=== PATIENT | male | born 1985 | race Caucasian/White ===

== ENCOUNTER 2019-04-21 16:43 | Inpatient (IN) | payer OTHER ==
[~2019-04-21] VITALS: Ht 182.9 cm; Wt 96.3 kg
[2019-04-21 17:35] VITALS: BP 114/76
--- NOTE | 2019-04-21 17:35 | NUR ---
PATIENT MEETS [facility]. CINA=[id number]. PATIENT IS GOING TO FOLLOW UP WITH ON DEM[facility] IN [facility] FOR OUTPATIENT TREATMENT. JACK ELMUS B.A. [employer]ION[employer] E[employer]IST
--- NOTE | 2019-04-21 17:35 | NUR ---
34 year old MALE admitted to room # 531 for stabilization. 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 Compliant with admission procedure. Patient denies any anxiety, but is unable to sit still, taps toes to floor continuously, looks about room, unable to focus eyes on nurse during interview. See assessment forms for additional information about patient status.
[2019-04-21 18:36] LABS: BILIRUBIN NEGATIVE (NEGATIVE); BLOOD NEGATIVE (NEGATIVE); CLARITY CLEAR (CLEAR); COLOR YELLOW (YELLOW); GLUCOSE NEGATIVE (NEGATIVE); KETONE NEGATIVE (NEGATIVE); LEUKO ESTERASE NEGATIVE (NEGATIVE); NITRITE NEGATIVE (NEGATIVE); UROBILINOGEN 0.2 E.U./dl (0.2-1.0)
[2019-04-21 18:43] LABS: BASO % 0.4 % (0.0-1.0); EOS # 0.2 10*3/uL (0.0-0.4); EOS % 2.4 % (1.0-4.0); HEMATOCRIT 35.3 % (42.0-52.0); HEMOGLOBIN 12.4 g/dl (14.0-18.0); LYMPH % 45.1 % (27.0-41.0); MEAN CELL VOLUME 87.6 fl (80.0-94.0); MEAN CORPUSCULAR HGB 30.8 pg (27.0-31.0); MEAN CORPUSCULAR HGB CONC 35.1 g/dl (33.0-37.0); MEAN PLATELET VOLUME 9.2 fl (9.6-12.3); MONO # 0.4 10*3/uL (0.1-1.0); MONO % 6.3 % (3.0-9.0); NEUT % 45.5 % (47.0-73.0); PLATELET COUNT AUTOMATED 201 10*3/uL (130-400); RED BLOOD COUNT 4.03 10*6/uL (4.50-5.90); RED CELL DISTRI WIDTH 12.5 % (0-14.5); WHITE BLOOD COUNT 6.7 10*3/uL (4.8-10.8)
[2019-04-21 18:44] LABS: URINE AMPHETAMINES < 1000 (1000ng/ml); URINE BARBITURATES < 200 (200ng/ml); URINE BENZODIAZEPINES > 200 (200ng/ml); URINE CANNABINOIDS (THC) < 50 (50ng/ml); URINE COCAINE > 300 (300ng/ml); URINE METHADONE < 300 (300ng/ml); URINE OPIATES > 300 (300ng/ml)
[2019-04-21 18:46] LABS: EPITHELIAL CELLS 0-2; WBC 0-2 wbc/hpf (0-5)
[2019-04-21 18:47] LABS: URINE PHENCYCLIDINE < 25 (25ng/ml)
[2019-04-21 18:56] LABS: ALBUMIN 3.9 gm/dl (3.1-4.5); ALKALINE PHOSPHATASE 44 U/L (45-117); BUN 10 mg/dl (7-24); CHLORIDE 104 mmol/L (98-107); CREATININE 0.98 mg/dL (0.70-1.30); ETHYL ALCOHOL < 3.0 mg/dl (<3); POTASSIUM 3.7 mmol/L (3.5-5.1); SGOT/AST 10 IU/L (3-35); SGPT/ALT 18 U/L (12-78); SODIUM 137 mmol/L (136-145); TOTAL PROTEIN 6.8 gm/dL (6.4-8.2)
[2019-04-21 20:00] VITALS: BP 104/64
--- NOTE | 2019-04-21 20:33 | NUR ---
PT IS AWAKE AND SITTING UP IN BED AT THIS TIME. APPEARS TO BE IN GOOD SPIRITS AND WITHOUT ANY WITHDRAWAL SYMPTOMS AT THIS TIME. HE WAS EDUCATED ON THE USE OF PRNS. PT ALSO STATES HE DOES NOT WANT TO BE AWAKENED FOR MIDNIGHT DOSE OF LIBRIUM D/T HIM NOT WANTING ANY DOSES AT THIS TIME. WILL CONTINUE TO MONITOR.
[2019-04-22] VITALS: BP 120/84
[2019-04-22 08:00] VITALS: BP 106/59
--- NOTE | 2019-04-22 10:24 | NUR ---
MEDICATED WITH PRN PO ROBAXIN AND TYLENOL FOR MUSCLE CRAMPS AND ACHES, ALSO REQUIP FOR RESTLESS LEGS.
--- NOTE | 2019-04-22 11:20 | NUR ---
Patient resting. Responding to scheduled and prn medications with fewer complaints of pain and anxiety.
[2019-04-22 12:00] VITALS: BP 110/62
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
== END 2019-04-22 14:20 | disposition left against medical advice (07) | DRG 894 ==
LOC: 5E 16:43
PROVIDERS: Internal Medicine; ADMIT Internal Medicine
DX: F11.23 Opioid dependence with withdrawal (principal); Z53.21 Procedure and treatment not carried out due to patient leaving prior to being seen by health care provider; F13.10 Sedative, hypnotic or anxiolytic abuse, uncomplicated; F14.10 Cocaine abuse, uncomplicated; D64.9 Anemia, unspecified; R00.1 Bradycardia, unspecified; F17.210 Nicotine dependence, cigarettes, uncomplicated; Z71.6 Tobacco abuse counseling; Z88.0 Allergy status to penicillin